=== PATIENT | female | born 1980 | race Caucasian/White ===

== ENCOUNTER 2018-06-14 23:41 | Emergency (ER) | payer MEDICAID ==
[~2018-06-14] VITALS: Ht 180.3 cm; Wt 89.8 kg
[2018-06-14 23:55] VITALS: BP 119/66
--- NOTE | 2018-06-15 00:07 | NUR ---
AMBUALTED TO BED 4.
--- NOTE | 2018-06-15 00:39 | NUR ---
N/V, FEVER, COUGH, BODY ACHES, AND BILAT EAR PAIN X2 DAYS. TREATING SYMPTOMS WITH TYLENOL AT HOME. AFEBRILE. VSS. DENIES SOB, OR CP AT THIS TIME. STATES SHE THREW UP ONE TIME TODAY. ANAD MADE AWARE OF STATUS.
[2018-06-15] MEDS ORDERED: ONDANSETRON 4 MG ODT PO ONE (00:40)
[2018-06-15] MEDS ORDERED: KETOROLAC 30 MG/ML VIAL IM ONE (00:40)
[2018-06-15 02:37] VITALS: BP 116/72
--- NOTE | 2018-06-15 02:37 | NUR ---
DISCHARGE PAPERS GIVEN. AFEBRILE. VSS. 04/07 PAIN BUT TOLLERABLE. RX OF AZITHROMYCIN AND GAIATUSSIN GIVEN. SIDE EFFECTS EXPLAINED. INSTRUCTED TO F/U WITH PCP AND WHEN TO RETURN TO ED. PT VERBALLIZED UNDERSTANDING OF DC INSTRUCTIONS. ALL QUESTIONS ANSWERED.
== END 2018-06-15 02:37 | disposition home or self-care (01) ==
LOC: MED 23:41
DX: J20.9 Acute bronchitis, unspecified (principal)
CPT/HCPCS: 71045; 81002; 81025; 87804; 96372; 99284; J1885; Q0092; Q0162

== ENCOUNTER 2022-07-26 11:06 | Emergency (ER) | payer MEDICAID ==
[~2022-07-26] VITALS: Ht 149.9 cm; Wt 103.4 kg
[2022-07-26 11:29] VITALS: BP 140/84
[2022-07-26] MEDS ORDERED: KETOROLAC 30 MG/ML VIAL IM ONE (12:05)
--- NOTE | 2022-07-26 13:04 | NUR ---
41 Y/O FEMALE BIB SELF CO LEFT KNEE PAIN 5/10 FROM FALL OFF STEP STOOL 2ND STEP YESTERDAY, SWELLING, DIFFICULTY WALKING. PAIN UNRELIEVED WITH IBUPROFEN PMH-CLOTS IN LEFT LEG WITH COLLAPSED VEIN AND STENT 15YEARS AGO, ALLERGIES-NKA
[2022-07-26] MEDS ORDERED: IBUP-2213 PO (13:18)
[2022-07-26 13:32] VITALS: BP 156/74
--- NOTE | 2022-07-26 13:32 | NUR ---
Patient discharged with v/s stable. Written and verbal after care instructions given and explained. Patient alert, oriented and verbalized understanding of instructions. Ambulatory with [facility]. All questions addressed prior to discharge. ID band removed. Patient advised to follow up with PMD. Rx of given. Patient educated on indication of medication including possible reaction and side effects. Opportunity to ask questions provided and answered. RX: IBUPROFEN (SENT)
--- NOTE | 2022-07-26 13:34 | NUR ---
The patient's care was reviewed and supervised by Jennifer Murrell, RN, RN.
== END 2022-07-26 13:32 | disposition home or self-care (01) ==
LOC: MED 11:06
DX: S83.8X2A Sprain of other specified parts of left knee, initial encounter (principal); W18.30XA Fall on same level, unspecified, initial encounter; Y93.89 Activity, other specified; Y92.89 Other specified places as the place of occurrence of the external cause; Y99.8 Other external cause status
CPT/HCPCS: 73562; 81025; 93971; 96372; 99285; J1885; Q0092

== ENCOUNTER 2022-10-02 14:01 | Emergency (ER) | payer MEDICAID ==
[~2022-10-02] VITALS: Ht 162.6 cm; Wt 104.8 kg
[~2022-10-02 14:01] MED LIST: IBUP-2213 PO
[2022-10-02 14:17] VITALS: BP 115/87; PULSE 89; RESP 18; TEMP 98; O2SAT 99
[2022-10-02 15:21] LABS: BILIRUBIN,URINE NEGATIVE (NEGATIVE); BLOOD, URINE 3+ (NEGATIVE); COLOR,URINE YELLOW (YELLOW); LEUKOCYTE ESTERASE ,URINE 1+ (NEGATIVE); NITRITE, URINE POSITIVE (NEGATIVE); UGLUCOSE NEGATIVE (NEGATIVE)
[2022-10-02 15:23] LABS: APPEARANCE,URINE CLOUDY (CLEAR)
[2022-10-02 15:31] LABS: RBC,URINE 11-20 (MOD) /HPF (0-5)
[2022-10-02] MEDS ORDERED: NAPR-54 PO (16:13)
[2022-10-02] MEDS ORDERED: PYR100 PO (16:13)
[2022-10-02] MEDS ORDERED: NITR100C7 PO (16:13)
--- NOTE | 2022-10-02 17:37 | NUR ---
Patient discharged with v/s stable. Written and verbal after care instructions given and explained. Patient alert, oriented and verbalized understanding of instructions. Ambulatory with to home. All questions addressed prior to discharge. ID band removed. Patient advised to follow up with PMD. Rx of MACROBID, NAPROSYN, PYRIDIUM given. Patient educated on indication of medication including possible reaction and side effects. Opportunity to ask questions provided and answered.
== END 2022-10-02 17:37 | disposition home or self-care (01) ==
LOC: MED 14:01
DX: N39.0 Urinary tract infection, site not specified (principal); R35.0 Frequency of micturition; R30.0 Dysuria; Z79.899 Other long term (current) drug therapy
CPT/HCPCS: 81001; 81025; 87086; 99283